=== PATIENT | male | born 1985 | race Caucasian/White ===

== ENCOUNTER 2016-12-18 03:50 | Emergency (ER) | payer OTHER ==
[~2016-12-18] VITALS: Ht 182.9 cm; Wt 72.6 kg
[2016-12-18 04:05] VITALS: BP 118/69
--- NOTE | 2016-12-18 04:12 | NUR ---
Patient to bed 05.
[2016-12-18] MEDS ORDERED: NACL 0.9% 1,000 ML IV SCH (04:14)
[2016-12-18] MEDS ORDERED: ONDANSETRON 4 MG/2 ML VIAL IVP ONE (04:15)
--- NOTE | 2016-12-18 04:16 | NUR ---
Dr. Morris evaluating patient at bedside.
[2016-12-18] MEDS ORDERED: HYDROmorphone 1 MG/ML AMP IVP ONE (04:20)
--- NOTE | 2016-12-18 04:51 | NUR ---
PATIENT PRESENTS TO ED WITH LT FLANK PAIN X3DAYS . PT STATES WHEN HE URINATES ON HIS OWN, HIS URINE IS NORMAL, HOWEVER WHEN HE DRAINS HIS UROSTOMY BAG, PATIENT NOTICES HIS URINE IS CLOUDY WITH A FOUL ODOR . DENIES N/V/D; SKIN IS PINK/WARM/DRY; AAOX4 WITH EVEN AND STEADY GAIT; LUNGS CLEAR BL; HR EVEN AND REGULAR; PT DENIES ANY FEVER, CP, SOB, OR COUGH AT THIS TIME; PATIENT STATES PAIN OF 8/10 AT THIS TIME; VSS; PATIENT POSITIONED FOR COMFORT; HOB ELEVATED; BEDRAILS UP X2; BED DOWN. ER MD MADE AWARE OF PT STATUS.
[2016-12-18 05:41] VITALS: BP 118/69
--- NOTE | 2016-12-18 05:41 | NUR ---
Patient discharged with v/s stable. Written and verbal after care instructions given and explained. Patient alert, oriented and verbalized understanding of instructions. Ambulatory with steady gait. All questions addressed prior to discharge. ID band removed. Patient advised to follow up with PMD. Rx of ZOFRAN AND NORCO given. Patient educated on indication of medication including possible reaction and side effects. Opportunity to ask questions provided and answered.
--- NOTE | 2016-12-22 14:23 | NUR ---
ADDENDUM:URINE CULTURE RESULTS ACINETOBACTER BAUMANNII/HAEMOL,STENOTROPHOMONAS MALTOPHILIA.LIDIA REVIEWED BY .CALLED PATIENT AND LEFT MESSAGE TO CALL ER.
== END 2016-12-18 05:41 | disposition home or self-care (01) ==
LOC: MED 03:50
DX: R10.9 Unspecified abdominal pain (principal); R11.0 Nausea; M54.9 Dorsalgia, unspecified; Z87.448 Personal history of other diseases of urinary system; Z82.49 Family history of ischemic heart disease and other diseases of the circulatory system; Z83.3 Family history of diabetes mellitus
CPT/HCPCS: 36415; 74176; 80053; 81001; 82150; 83690; 85025; 87086; 96361; 96374; 96375; 99285; J1170; J2405; J7030

== ENCOUNTER 2017-01-02 17:45 | Inpatient (IN) | payer OTHER ==
[~2017-01-02] VITALS: Ht 182.9 cm; Wt 70.8 kg
[2017-01-02 18:00] VITALS: BP 117/75
--- NOTE | 2017-01-02 18:24 | NUR ---
PT. PRESENTS TO THE ED WITH C/O LEFT SIDED FLANK PAIN, HE STATES HE HAS HAD A NEPHROSTOMY TUBE TO LEFT KIDNEY SINCE BUT THAT THE TUBE WAS REPLACED 2-3 WEEKS AGO AT [facility], PT. STATES THE URINE OUTPUT FROM THE NEPHROSTOMY HAS DECREASED AND THE URINE ODOR HAS GOTTEN WORSE, NO VISIBLE SIGNS OF DISTRESS NOTED, BREATHING EVEN AND UNLABORED, AAOX4 AMBULATORY, GAIT STEADY
[2017-01-02] MEDS ORDERED: HYDROmorphone 1 MG/ML AMP IVP ONE ×2 (18:35→20:35)
[2017-01-02 18:50] LABS: BASOPHILS # (AUTO) 0.2 K/uL (0.00-0.22); BASOPHILS % (AUTO) 1.5 % (0.0-2.0); EOSINOPHILS # (AUTO) 0.3 K/uL (0-0.4); EOSINOPHILS % (AUTO) 2.4 % (0.0-4.0); HEMATOCRIT 44.3 % (36-52); HEMOGLOBIN 14.8 g/dL (12.0-18.0); LYMPHOCYTES # (AUTO) 1.3 K/uL (2.0-11.5); LYMPHOCYTES % (AUTO) 11.1 % (20.5-51.1); MEAN CORPUSCULAR HEMOGLOBIN 28 pg (27-31); MEAN CORPUSCULAR HGB CONC 33 g/dL (33-37); MEAN CORPUSCULAR VOLUME 84 fL (80-94); MONOCYTES # (AUTO) 0.5 K/uL (0.8-1.0); MONOCYTES % (AUTO) 4.1 % (1.7-9.3); NEUTROPHILS % (AUTO) 80.9 % (42.2-75.2); PLATELET COUNT (AUTO) 187 K/uL (140-450); RED BLOOD CELL COUNT(AUTO) 5.25 MIL/uL (4.20-6.10); RED CELL DISTRIBUTION WIDTH 13.1 % (11.6-13.7); WHITE BLOOD COUNT (AUTO) 11.3 K/uL (4.8-10.8)
[2017-01-02 18:54] LABS: APPEARANCE,URINE SL CLOUDY (CLEAR); BILIRUBIN,URINE NEGATIVE (NEGATIVE); BLOOD, URINE 3+ (NEGATIVE); COLOR,URINE YELLOW (YELLOW); LEUKOCYTE ESTERASE ,URINE 2+ (NEGATIVE); NITRITE, URINE POSITIVE (NEGATIVE); PROTEIN,URINE 3+ (NEGATIVE); UGLUCOSE NEGATIVE (NEGATIVE); UROBILINOGEN,URINE 0.2 EU/dL (0.2 - 1)
[2017-01-02 18:58] LABS: BACTERIA,URINE 4+ /HPF (None Seen); RBC,URINE 30-50 /HPF (0-5); SQUAMOUS EPITHELIAL CELL,UR 0-3 (FEW) /LPF (0-3 (FEW)); WBC,URINE 60-80 /HPF (0-5)
[2017-01-02 19:05] LABS: ANION GAP 11.4 (8-16); CALCIUM 8.6 mg/dL (8.5-10.1); CARBON DIOXIDE 28.2 mmol/L (21-32); CREATININE 0.8 mg/dL (0.6-1.3); POTASSIUM 3.6 mmol/L (3.5-5.1)
--- NOTE | 2017-01-02 19:10 | NUR ---
PATIENT REPORT GIVEN TO FLORENCE DASH.
[2017-01-02 19:12] LABS: ALBUMIN 4.5 g/dL (3.4-5.0); TOTAL BILIRUBIN 1.2 mg/dL (0.0-1.0); TOTAL PROTEIN, SERUM 7.5 g/dL (6.4-8.2)
[2017-01-02 19:13] LABS: LACTIC ACID 0.6 mmol/L (0.4-2.0)
--- NOTE | 2017-01-02 19:18 | NUR ---
PATIENT REPORT RECEIVED FROM LILY ARCHIBALD FROM DAY SHIFT. 31 Y/O MALE CAME IN WITH LEFT FLANK PAIN 2-3 WEEKS AGO. WITH LEFT NEPHROSTOMY TUBE REPLACED FROM [facility] 2-3 WEEKS AGO[address] CAME IN [place]. NOW DENIES ANY PAIN. VERBALIZED THAT PREVIOUS MED RELIEVED THE PAIN. INITIAL ASSESSMENT DONE, VS STABLE. NO NAUSEA OR VOMITING NOTED.
[2017-01-02] MEDS ORDERED: ONDANSETRON 4 MG/2 ML VIAL IVP PRN (20:30)
[2017-01-02] MEDS ORDERED: ACETAMINOPHEN 325 MG TAB PO PRN (20:30)
[2017-01-02 20:48] LABS: INR 1.1 (0.8-1.2); PROTHROMBIN TIME 10.1 secs (10.8-13.4)
--- NOTE | 2017-01-02 21:35 | NUR ---
Patient will be admitted to care of DR. PEREZ. Admited to MED SURG. Will go to room 105 A. Belongings list completed. Report to HARDY ARCHIBALD.
[2017-01-02 22:00] VITALS: BP 127/83
--- NOTE | 2017-01-02 22:00 | NUR ---
ADMITTED THIS 31 YEAR OLD MALE FROM ER WITH CC OF LEFT FLANK PAIN, AMBULATED TO BED WITH STEADY GAIT, ASSESSMENT DONE, VITAL SIGNS STABLE, WITH LEFT NEPHROSTOMY TUBE IN PLACE ATTACH TO DRAINAGE BAG WITH CLOUDY YELLOW URINE OUTPUT, REDNESS NOTED TO NEPHROSTOMY SITE, NO BLEEDING OR DRAINAGE NOTED, 4/10 PAIN LEVEL AT THIS TIME, ORIENTED TO ROOM AND CALL LIGHT, CALL LIGHT WITHIN REACH.
[2017-01-02] MEDS ORDERED: PIPERACILLIN/TAZOBACTAM 3.375 GM VIAL IV ONE (22:03)
[2017-01-02] MEDS: NACL 0.9% 1,000 ML IV SCH (22:16)
[2017-01-02] MEDS: PIPERACILLIN/TAZOBACTAM 3.375 GM in DEXTROSE 5% 50 ML IV SCH (22:16)
--- NOTE | 2017-01-02 22:20 | NUR ---
REGULAR DIET PROVIDED, WITH GOOD APPETITE, IVF STARTED AND ZOSYN IVPB ADMINISTERED, MONITORED CLOSELY FOR REACTION, ALL NEEDS ATTENDED.
[2017-01-02] MEDS: HYDROmorphone 1 MG/ML AMP IVP PRN (23:50)
[2017-01-03] VITALS: BP 128/80
--- NOTE | 2017-01-03 | NUR ---
VITAL SIGNS STABLE, AFEBRILE, MEDICATED PRN FOR PAIN, CONTINUE TO MONITOR CLOSELY.
--- NOTE | 2017-01-03 00:30 | NUR ---
PT SEEN AMBULATING TO BR WITH STEADY GAIT, VOIDED FREELY.
--- NOTE | 2017-01-03 03:00 | NUR ---
ROUNDED ON PT, SLEEPING, NO SIGNS OF DISTRESS, MONITORED CLOSELY.
[2017-01-03] MEDS ORDERED: PIPERACILLIN/TAZOBACTAM 3.375 GM VIAL IV ONE (04:38)
[2017-01-03] MEDS: PIPERACILLIN/TAZOBACTAM 3.375 GM in DEXTROSE 5% 50 ML IV SCH (04:57)
--- NOTE | 2017-01-03 05:51 | NUR ---
PT SLEEPING, EASILY AROUSABLE, 110 ML YELLOW COLORED URINE OUTPUT FROM NEPHROSTOMY TUBE, DENIES PAIN AT THIS TIME.
[2017-01-03 06:15] LABS: BASOPHILS # (AUTO) 0.3 K/uL (0.00-0.22); BASOPHILS % (AUTO) 4.4 % (0.0-2.0); EOSINOPHILS # (AUTO) 0.4 K/uL (0-0.4); EOSINOPHILS % (AUTO) 6.1 % (0.0-4.0); HEMATOCRIT 42.7 % (36-52); HEMOGLOBIN 14.3 g/dL (12.0-18.0); LYMPHOCYTES # (AUTO) 2.4 K/uL (2.0-11.5); LYMPHOCYTES % (AUTO) 35.7 % (20.5-51.1); MEAN CORPUSCULAR HEMOGLOBIN 28 pg (27-31); MEAN CORPUSCULAR HGB CONC 33 g/dL (33-37); MEAN CORPUSCULAR VOLUME 85 fL (80-94); MONOCYTES # (AUTO) 0.4 K/uL (0.8-1.0); MONOCYTES % (AUTO) 6.3 % (1.7-9.3); NEUTROPHILS # (AUTO) 3.3 K/uL (1.8-7.7); NEUTROPHILS % (AUTO) 47.5 % (42.2-75.2); PLATELET COUNT (AUTO) 179 K/uL (140-450); RED BLOOD CELL COUNT(AUTO) 5.01 MIL/uL (4.20-6.10); RED CELL DISTRIBUTION WIDTH 13.3 % (11.6-13.7); WHITE BLOOD COUNT (AUTO) 6.8 K/uL (4.8-10.8)
[2017-01-03] MEDS: NACL 0.9% 1,000 ML IV SCH ×3 (06:29→21:38)
--- NOTE | 2017-01-03 06:40 | NUR ---
PT REFUSED SCD, RISK AND BENEFITS EXPLAINED, PT AMBULATORY, IVF INFUSING WELL.
[2017-01-03 06:50] LABS: ALBUMIN 3.9 g/dL (3.4-5.0); ANION GAP 9.8 (8-16); CALCIUM 7.8 mg/dL (8.5-10.1); CREATININE 0.9 mg/dL (0.6-1.3); POTASSIUM 3.8 mmol/L (3.5-5.1); TOTAL BILIRUBIN 1.4 mg/dL (0.0-1.0); TOTAL PROTEIN, SERUM 6.6 g/dL (6.4-8.2)
--- NOTE | 2017-01-03 07:25 | NUR ---
PT AWAKE, BEING SEEN BY DR ESPINOSA AT BEDSIDE, REPORT GIVEN TO CRISTELA REINOSO FOR CONTINUITY OF CARE.
--- NOTE | 2017-01-03 07:26 | NUR ---
RECEIVED PT IN BED, ALERT, AWAKE, ORIENTEDX4. BREATHING EVEN AND UNLABORED. DENIES ANY PAIN OR DISCOMFORT AT THIS TIME. POSITIVE BOWEL SOUNDS NOTED ON ALL FOUR QUADRANTS. LEFT NEPHROSTOMY TUBE IN PLACE, INTACT. NO DISCHARGE NOTED. HOOKED TO URINARY BAG. DRAINING YELLOW URINE. SEEN BY CELL LINER.
--- NOTE | 2017-01-03 07:27 | NUR ---
ADDITIONAL: SAFETY MEASURES IN PLACE. CALL LIGHT WITHIN REACH.
--- NOTE | 2017-01-03 07:30 | NUR ---
PT SEEN BY DR. ESPINOSA AT THE BEDSIDE. WITH ORDERS TO CHANGE THE NEPHROSTOMY LEG BAG.
--- NOTE | 2017-01-03 07:50 | NUR ---
PATIENT HAS BEEN SCREENED AND CATEGORIZED MODERATE NUTRITION RISK. PATIENT WILL BE SEEN WITHIN 3-5 DAYS OF ADMISSION. 01/05/17-01/07/[address]
[2017-01-03 08:00] VITALS: BP 102/64
[2017-01-03] MEDS: MORPHINE SULFATE 2 MG/ML SYR IVP PRN ×2 (08:09→18:31)
[2017-01-03] MEDS: ENOXAPARIN 40 MG/0.4 ML SYR SUBQ SCH (08:10)
--- NOTE | 2017-01-03 08:30 | NUR ---
LEFT NEPHROSTOMY LEG BAG CHANGED. MODERATE AMOUNTS OF CLOUDY, YELLOW DRAINAGE NOTED.
--- NOTE | 2017-01-03 08:30 | NUR ---
LEFT NEPHROSTOMY LEG BAG CHANGED. Addendum: 01/03/17 at 1552 by Leida Diop RN DUPLICATE ENTRY.
[2017-01-03] MEDS: PIPER/TAZO 3.375GM/D5W PREMIX 50 ML IV SCH ×2 (12:55→20:22)
--- NOTE | 2017-01-03 13:00 | NUR ---
DR. PEREZ HERE TO SEE PT.
[2017-01-03] MEDS: HYDROmorphone 1 MG/ML AMP IVP PRN ×2 (13:01→20:58)
--- NOTE | 2017-01-03 14:40 | NUR ---
CM NOTE INITIAL REVIEW SENT TO [facility] FAX# [phone] PH# JORGE LUIS [phone]
--- NOTE | 2017-01-03 15:00 | NUR ---
LEFT NEPHROSTOMY TUBE DRESSING CHANGED. SITE DRY, SUTURES INTACT, NO SIGNS OF INFECTION NOTED. MODERATE AMOUNTS OF LEFT NEPHROSTOMY TUBE DRAINAGE NOTED, CLEAR ADIEL IN COLOR.
[2017-01-03 16:00] VITALS: BP 124/77
--- NOTE | 2017-01-03 16:00 | NUR ---
NEPHROSTOMY TUBE DRESSING CHANGED. NO DISCHARGE NOTED. TUBE INTACT. PT DENIES ANY PAIN OR DISCOMFORT AT THIS TIME. SEEN PT WALK AND AMBULATE ALONG THE HALLWAY INDEPENDENTLY, TOLERATED ACTIVITY WELL.
--- NOTE | 2017-01-03 19:20 | NUR ---
ENDORSED TO NEXT SHIFT NURSE. PT ON STABLE CONDITION. KEPT CLEAN DRY AND COMFORTABLE NEEDS ATTENDED.
--- NOTE | 2017-01-03 19:22 | NUR ---
PATIENT IS AWAKE ALERT ORIENTED RESTING IN BED,IVF INFUSING WELL IV SITE PATENT NO INFILTRATION NOTED, PATIENT DENIES PAIN AT THIS TIME. PATIENT DRESSING TO LT SIDE WERE THE NEPHROSTOMY TUBE IS CURRENTLY DRY AND INTACT AND HAS A URINE BAG WITH YELLOW CLEAR URINE NOTED. PATIENT IS ABLE TO MAKE NEEDS KNOWN.CALL LIGHT WITHIN REACH WILL CONTINUE TO MONITOR.
[2017-01-03 20:00] VITALS: BP 116/78
--- NOTE | 2017-01-03 20:00 | NUR ---
Patient's Plan of Care was discussed and reviewed with UNIVERSITY MANAGER: STORM CHAVEZ.
--- NOTE | 2017-01-03 21:38 | NUR ---
PATIENT IS CURRENTLY RESTING IN BED SMILING PLAYING AND PATIENT STATES,"IM WATCHING MOVIES." PATIENT IS CALM AND COOPERATIVE AND CALL LIGHT WITHIN REACH.PATIENT REFUSES TO WEAR SCD'S EDUCATION GIVEN ON SCD'S AND PATIENT VERBALIZES UNDERSTANDING. WILL CONTINUE TO OBSERVE.
[2017-01-04] VITALS: BP 128/79
--- NOTE | 2017-01-04 | NUR ---
PATIENT SMILING WATCHING MOVIES IN HIS TABLET AT THIS TIME.WILL CONTINUE TO MONITOR CALL LIGHT WITHIN REACH.
[2017-01-04] MEDS: MORPHINE SULFATE 2 MG/ML SYR IVP PRN ×3 (00:14→13:20)
--- NOTE | 2017-01-04 03:20 | NUR ---
PATIENT IS CURRENTLY ASLEEP IN BED.WILL CONTINUE TO MONITOR.
[2017-01-04] MEDS: PIPER/TAZO 3.375GM/D5W PREMIX 50 ML IV SCH ×2 (04:26→12:28)
--- NOTE | 2017-01-04 06:05 | NUR ---
PATIENT STABLE SLEEPING COMFORTABLY IN BED,IVF INFUSING WELL,NO PAIN OR DISCOMFORT AT THIS TIME WILL CONTINUE TO MONITOR CALL LIGHT WITHIN REACH.
--- NOTE | 2017-01-04 07:21 | NUR ---
PATIENT STABLE REPORT ENDORSED TO CRISTELA SCHNEIDER AT BEDSIDE.
--- NOTE | 2017-01-04 07:21 | NUR ---
RECEIVED REPORT FROM NIGHT NURSE. PT IS AAOX4, ON ROOM AIR, IV TO RIGHT HAND 22G INFUSING WELL. LEFT LOWER BACK NEPHROTOMY TUBE WITH DRESSING DRY AND INTACT AN DRAINAGE BAG, DRAINING CLEAR YELLOW URINE. INITIAL ASSESSMENT COMPLETED. REVIEWED PLAN OF CARE WITH PT, PT VERBALIZED UNDERSTANDING. ALL SAFETY PRECAUTIONS MET, ALL NEEDS MET. CALL LIGHT WITHIN REACH. WILL CONTINUE TO MONITOR.
[2017-01-04 08:00] VITALS: BP 113/73
[2017-01-04] MEDS: ENOXAPARIN 40 MG/0.4 ML SYR SUBQ SCH (09:11)
--- NOTE | 2017-01-04 09:11 | NUR ---
DUE MEDICATIONS GIVEN. PT TOLERATED WELL. ALL NEEDS MET. CALL LIGHT WITHIN REACH. WILL CONTINUE TO MONITOR.
[2017-01-04] MEDS: NACL 0.9% 1,000 ML IV SCH (09:13)
--- NOTE | 2017-01-04 11:45 | NUR ---
PT CURRENTLY WALKING AROUND UNIT. NO S/S OF DISTRESS NOTED. WILL CONTINUE TO MONITOR.
--- NOTE | 2017-01-04 12:30 | NUR ---
DUE MEDICATION GIVEN. DISCUSSED DISCHARGE PLAN WITH PT, PT VERBALIZED UNDERSTAND. CALL LIGHT WITHIN REACH.
--- NOTE | 2017-01-04 13:55 | NUR ---
PT WALKING AROUND UNIT. WILL CONTINUE TO MONITOR.
--- NOTE | 2017-01-04 14:45 | NUR ---
PT SIGNED ALL DISCHARGE PAPERWORK, EDUCATIONS AND PRESCRIPTION GIVEN. PT VERBALIZED UNDERSTANDING. IV REMOVED TIP INTACT. ID BANDS REMOVED. ALL PERSONAL BELONGINGS WITH PT. AWAITING FOR FRIEND TO PICK HIM UP
--- NOTE | 2017-01-04 15:03 | NUR ---
PT WAS WALKED OUT TO FRONT LOBBY IN STABLE CONDITION.
== END 2017-01-04 15:03 | disposition home or self-care (01) | DRG 466 ==
LOC: MED 17:45 → MTU 20:34
PROVIDERS: ADMIT Internal Medicine Pulmonary Disease; ATTEND Internal Medicine Pulmonary Disease
PROC: 0T25X0Z Change Drainage Device in Kidney, External Approach (ICD-10-PCS; principal; 2017-01-03)
DX: N99.528 Other complication of incontinent external stoma of urinary tract (principal); R56.9 Unspecified convulsions; N12 Tubulo-interstitial nephritis, not specified as acute or chronic; D72.829 Elevated white blood cell count, unspecified; N13.30 Unspecified hydronephrosis
CPT/HCPCS: 36415; 80053; 81001; 83605; 85025; 85610; 87040; 87081; 87086; 87186; 96374; 96376; 99285; J1170; J1650; J2270; J2543; J7030; J7060

== ENCOUNTER 2017-01-31 02:15 | Inpatient (IN) | payer OTHER ==
[~2017-01-31] VITALS: Ht 182.9 cm; Wt 74.8 kg
[2017-01-31 02:22] VITALS: BP 104/72
--- NOTE | 2017-01-31 02:30 | NUR ---
PT TAKEN TO BED 4
[2017-01-31] MEDS ORDERED: fentaNYL 0.05 MG/ML VIAL IVP ONE (02:50)
[2017-01-31] MEDS ORDERED: NACL 0.9% 1,000 ML IV ONE (02:50)
[2017-01-31] MEDS ORDERED: ONDANSETRON 4 MG/2 ML VIAL IVP ONE (02:50)
--- NOTE | 2017-01-31 02:51 | NUR ---
31Y/M PATIENT PRESENTS TO ED WITH C/O TESTICULAR PAIN X 1 DAY . PT STATES PAIN START TODAY, HX. URETER OBSTRUCTION, HYDRONEPHROSIS LT. LIDNEY, ON LT.NEPHROSTOMY . DENIES N/V/D; SKIN IS PINK/WARM/DRY; AAOX4 WITH EVEN AND STEADY GAIT; LUNGS CLEAR BL; HR EVEN AND REGULAR; PT DENIES ANY FEVER, CP, SOB, OR COUGH AT THIS TIME; PATIENT STATES PAIN OF 10/10 AT THIS TIME; LT. NEPHROSTOMY PATENT AND INTACT, CLOUDY URINE DRAINE WELL. VSS; PATIENT POSITIONED FOR COMFORT; HOB ELEVATED; BEDRAILS UP X2; BED DOWN. ER MD MADE AWARE OF PT STATUS.
[2017-01-31 03:06] LABS: BASOPHILS # (AUTO) 0.3 K/uL (0.00-0.22); BASOPHILS % (AUTO) 3.9 % (0.0-2.0); EOSINOPHILS # (AUTO) 0.4 K/uL (0-0.4); EOSINOPHILS % (AUTO) 6.7 % (0.0-4.0); HEMATOCRIT 45.2 % (36-52); HEMOGLOBIN 15.2 g/dL (12.0-18.0); LYMPHOCYTES # (AUTO) 2.4 K/uL (2.0-11.5); LYMPHOCYTES % (AUTO) 35.7 % (20.5-51.1); MEAN CORPUSCULAR HEMOGLOBIN 29 pg (27-31); MEAN CORPUSCULAR HGB CONC 34 g/dL (33-37); MEAN CORPUSCULAR VOLUME 85 fL (80-94); MONOCYTES # (AUTO) 0.4 K/uL (0.8-1.0); MONOCYTES % (AUTO) 6.7 % (1.7-9.3); NEUTROPHILS # (AUTO) 3.1 K/uL (1.8-7.7); PLATELET COUNT (AUTO) 198 K/uL (140-450); RED BLOOD CELL COUNT(AUTO) 5.34 MIL/uL (4.20-6.10); RED CELL DISTRIBUTION WIDTH 12.6 % (11.6-13.7); WHITE BLOOD COUNT (AUTO) 6.6 K/uL (4.8-10.8)
[2017-01-31 03:22] LABS: ALBUMIN 4.3 g/dL (3.4-5.0); ANION GAP 12.9 (8-16); CREATININE 0.8 mg/dL (0.6-1.3); POTASSIUM 3.9 mmol/L (3.5-5.1); TOTAL BILIRUBIN 0.8 mg/dL (0.0-1.0); TOTAL PROTEIN, SERUM 7.4 g/dL (6.4-8.2)
--- NOTE | 2017-01-31 03:23 | NUR ---
Dr. Mcbride evaluating patient at bedside.
[2017-01-31 03:25] LABS: PARTIAL THROMBOPLASTIN TIME 28.7 secs (22-35.6); PROTHROMBIN TIME 9.9 secs (10.8-13.4)
--- NOTE | 2017-01-31 03:28 | NUR ---
TAKE PT. TO CT
[2017-01-31 03:36] LABS: APPEARANCE,URINE CLOUDY (CLEAR); BILIRUBIN,URINE NEGATIVE (NEGATIVE); BLOOD, URINE 2+ (NEGATIVE); COLOR,URINE YELLOW (YELLOW); LEUKOCYTE ESTERASE ,URINE 3+ (NEGATIVE); NITRITE, URINE POSITIVE (NEGATIVE); PROTEIN,URINE 2+ (NEGATIVE); UGLUCOSE NEGATIVE (NEGATIVE); UROBILINOGEN,URINE 0.2 EU/dL (0.2 - 1)
--- NOTE | 2017-01-31 03:46 | NUR ---
PT. BACK FROM CT
[2017-01-31 04:11] LABS: BACTERIA,URINE 4+ /HPF (None Seen); RBC,URINE TOO NUMEROUS TO COUN /HPF (0-5); SQUAMOUS EPITHELIAL CELL,UR None Seen /LPF (0-3 (FEW)); WBC,URINE TOO MANY TO COUNT /HPF (0-5)
[2017-01-31] MEDS ORDERED: LEVOFLOXACIN 500 MG/D5W PREMIX 100 ML IV ONE (04:35)
[2017-01-31] MEDS ORDERED: cefTRIAXone 2,000 MG in DEXTROSE 5% 100 ML IV ONE (04:35)
[2017-01-31] MEDS ORDERED: cefTRIAXone 2,000 MG VIAL ONE (04:42)
[2017-01-31] MEDS ORDERED: HYDROcodone/APAP 5/325 MG 1 TAB TAB PO PRN (04:45)
[2017-01-31] MEDS ORDERED: ACETAMINOPHEN 325 MG TAB PO PRN (04:45)
[2017-01-31] MEDS ORDERED: LORazepam 2 MG/ML VIAL IVP PRN (04:45)
[2017-01-31] MEDS ORDERED: ONDANSETRON 4 MG/2 ML VIAL IVP PRN (04:45)
--- NOTE | 2017-01-31 05:15 | NUR ---
Patient will be admitted to [facility]. Admited to MED-SURG. Will go to room 113. Belongings list completed. Report to CRISTELA HOSKINS.
--- NOTE | 2017-01-31 05:25 | NUR ---
PT ARRIVED ON UNIT IN STABLE CONDITION. NO SOB, NO SIGNS OF DISTRESS. PT IS AOX4, AMBULATORY. VS STABLE ON ROOM AIR. PT C/O PAIN AT NEPHROSTOMY SITE, WILL MEDICATE PER MD ORDER. PT WITH LT NEPHROSTOMY TUBE SURGICAL INCISION WITH MINIMAL PURULENT DRAINAGE NOTED, PICTURES TAKEN AND PLACED IN CHART. IV TO LT AC 18G PATENT, ASYMPTOMATIC, INTACT, IVF RUNNING. ORIENTED PT TO ROOM AND UNIT. PLAN OF CARE DISCUSSED WITH PT. SAFETY MEASURES IN PLACE. CALL LIGHT WITHIN REACH WILL CONTINUE TO MONITOR.
[2017-01-31 05:34] VITALS: BP 119/71
[2017-01-31] MEDS: NACL 0.9% 1,000 ML IV SCH ×2 (05:51→18:45)
[2017-01-31] MEDS: MORPHINE SULFATE 2 MG/ML SYR IVP PRN ×4 (05:54→23:48)
--- NOTE | 2017-01-31 07:20 | NUR ---
ENDORSED PT IN STABLE CONDITION TO CRISTELA WATTS. ALL NEEDS HAVE BEEN MET AT THIS TIME.
--- NOTE | 2017-01-31 07:21 | NUR ---
RECEIVED REPORT FROM CONTINUING EDUCATION DEAN NURSE AT BEDSIDE. PT IS AWAKE ALERT AND ORIENTED. INTRODUCED OURSELVES AND UPDATED THE BOARD. PT IS AMBULATORY, DENIES PAIN AT THIS TIME. NOTED IV AT L AC 20G. EMPTIED 400ML OF NEPHROSTOMY TUBE OF URINE. WILL CONTINUE TO MONITOR PT.
[2017-01-31 08:00] VITALS: BP 124/69
[2017-01-31] MEDS: ENOXAPARIN 40 MG/0.4 ML SYR SUBQ SCH (09:23)
--- NOTE | 2017-01-31 09:23 | NUR ---
ADMINISTERED LOVENOX. PT TOLERATED WELL. PT IS RESTING IN BED. WILL CONTINUE TO MONITOR.
--- NOTE | 2017-01-31 09:55 | NUR ---
CM NOTE INITIAL REVIEW SENT TO [facility] FAX# [phone] PH# JORGE LUIS [phone] MARCH [phone]
--- NOTE | 2017-01-31 10:05 | NUR ---
WOUND CARE EVALUATION NOTES: REASON FOR EVALUATION: LEFT NEPHROSTOMY SITE-POSSIBLE INFECTION COMPLETE SKIN ASSESSMENT DONE ON THIS 31 Y/O MALE PATIENT FROM HOME TO [facility], WITH INITIAL DIAGNOSIS OF PYELONEPHRITIS. PAST MEDICAL HISTORY INCLUDE URETER OBSTRUCTION. ALL ABOVE INFORMATION WAS OBTAINED FROM THE ADMISSION H&P. LABS ARE WBC 6.5, H/H 15.2/45.2, GLUCOSE 90, ALBUMIN 4.3, PT/INR 9.9/1.0 AND PTT 28.7. CURRENT MEDS INCLUDE CEFTRIAXONE, ENOXAPARIN, MORPHINE AND NORCO. PATIENT IS AWAKE, ORIENTED TO PERSON, PLACE, DATE AND TIME. SKIN WARM TO TOUCH WNL, TOENAILS WNL, NO EDEMA, WITH HAIR GROWTH AND +2 BILATERAL PEDAL PULSES. URINE AND BOWEL CONTINENT, ABLE TO AMBULATE TO THE RESTROOM CLAIMED. ABLE TO TURN SELF WITHOUT ASSISTANCE. ABLE TO MAKE HIS NEEDS KNOWN. INITIAL PLAN OF CARE AND PRESSURE PREVENTIVE MEASURES DISCUSSED, ABLE TO VERBALIZE UNDERSTANDING. INTEGUMENTARY: LEFT FLANK - NEPHROSTOMY SITE RECOMMENDATIONS: -LEFT FLANK (NEPHROSTOMY SITE): CLEANSE WITH NS AND GAUZE, PAT DRY, COVER WITH DRAIN SPONGE BIDWC AND PRN WITH SOILING --TURN AND REPOSITION PATIENT Q2H -ASSESS AND MONITOR SKIN CONDITION DURING POSITION CHANGE, PLEASE PAY PARTICULAR ATTENTION TO SACRALCOCCYX, ELBOWS AND HEELS -OFFLOAD BILATERAL HEELS BY PLACING PILLOWS UNDER CALVES AT ALL TIMES, UNLESS OTHERWISE CONTRAINDICATED -KEEP SKIN CLEAN AND DRY AT ALL TIMES. RECOMMENDATIONS DISCUSSED WITH PRIMARY RN AND PMD. NO FOLLOW UP NEEDED AT THIS TIME. PLEASE CONTACT [facility] FOR ANY CONCERNS, QUESTIONS AND CHANGES IN SKIN CONDITION.
--- NOTE | 2017-01-31 11:13 | NUR ---
PT ASKED FOR PAIN MEDICATION FOR HIS PAIN. ADMINISTERED MORPHINE. PT TOLERATED WELL. WILL REASSESS AND CONTINUE TO MONITOR.
[2017-01-31] MEDS ORDERED: GAUZE TP PRN (13:35)
--- NOTE | 2017-01-31 14:30 | NUR ---
PT IS RESTING IN BED. NO SIGNS OF DISCOMFORT OR DISTRESS. CALL HINDS WITHIN REACH. WILL CONTINUE TO MONITOR.
[2017-01-31 16:00] VITALS: BP 109/61
--- NOTE | 2017-01-31 16:00 | NUR ---
VS WNL. PT RESTING IN BED. CALL LIGHT WITHIN REACH. WILL CONTINUE TO MONITOR.
--- NOTE | 2017-01-31 17:50 | NUR ---
PT AMBULATED TO THE BATHROOM. NO COMPLAINTS AT THIS TIME, DENIES PAIN. CALL LIGHT WITHIN REACH. WILL CONTINUE TO MONITOR.
--- NOTE | 2017-01-31 18:49 | NUR ---
PT IS AWAKE AND ALERT. NEW IV NS BAG HUNG. PT HAS PAIN. ADMINISTERED PAIN MEDS. PT TOLERATED WELL. WILL CONTINUE TO MONITOR PT.
--- NOTE | 2017-01-31 19:25 | NUR ---
ENDORSED CARE OF PT TO MATERIAL MOVERS NURSE AT BEDSIDE FOR CONTINUITY OF CARE. PT IN STABLE CONDITION.
--- NOTE | 2017-01-31 19:25 | NUR ---
RECEIVED REPORT FROM DAY SHIFT NURSE. PT IS AAOX4, DENIES PAIN. ON ROOM AIR, NO S/S OF RESPIRATORY DISTRESS/DISCOMFORT NOTED. IV SITE ID PATENT AND INTACT. LEFT NEPHROSTOMY SITE NOTED. PLAN OF CARE DISCUSSED, VERBALIZED UNDERSTANDING. SAFETY MEASURES CHECKED, CALL LIGHT WITHIN REACH. WILL CONTINUE TO MONITOR.
--- NOTE | 2017-01-31 21:00 | NUR ---
PT IS AWAKE AND WATCHING TV. DENIES PAIN. CALL LIGHT WITHIN REACH.
[2017-01-31 23:47] VITALS: BP 121/69
--- NOTE | 2017-01-31 23:52 | NUR ---
PT COMPLAINED OF PAIN OF 7/10, MEDICATED PER MD ORDERED. V/S CHECKED AND STABLE, CALL LIGHT WITHIN REACH.
[2017-02-01] MEDS ORDERED: GAUZE TP SCH (01:00)
--- NOTE | 2017-02-01 02:16 | NUR ---
EYES CLOSED, RESTING QUIETLY, BREATHING EVEN AND UNLABORED. NO SOB NOTED. JUAN JOSE LIGHT WITHIN REACH.
--- NOTE | 2017-02-01 04:00 | NUR ---
PT SLEEPING. CHAI S/S OF RESPIRATORY DISTRESS/DISCOMFORT NOTED. CALL LIGHT WITHIN REACH.
[2017-02-01] MEDS: NACL 0.9% 1,000 ML IV SCH (04:32)
[2017-02-01 06:42] LABS: BASOPHILS # (AUTO) 0.1 K/uL (0.00-0.22); BASOPHILS % (AUTO) 2.2 % (0.0-2.0); EOSINOPHILS # (AUTO) 0.5 K/uL (0-0.4); EOSINOPHILS % (AUTO) 7.9 % (0.0-4.0); HEMATOCRIT 47.8 % (36-52); HEMOGLOBIN 15.5 g/dL (12.0-18.0); LYMPHOCYTES # (AUTO) 2.6 K/uL (2.0-11.5); LYMPHOCYTES % (AUTO) 43.7 % (20.5-51.1); MEAN CORPUSCULAR HEMOGLOBIN 28 pg (27-31); MEAN CORPUSCULAR HGB CONC 32 g/dL (33-37); MEAN CORPUSCULAR VOLUME 85 fL (80-94); MONOCYTES # (AUTO) 0.4 K/uL (0.8-1.0); MONOCYTES % (AUTO) 7.7 % (1.7-9.3); NEUTROPHILS # (AUTO) 2.2 K/uL (1.8-7.7); NEUTROPHILS % (AUTO) 38.5 % (42.2-75.2); PLATELET COUNT (AUTO) 197 K/uL (140-450); RED BLOOD CELL COUNT(AUTO) 5.62 MIL/uL (4.20-6.10); RED CELL DISTRIBUTION WIDTH 12.4 % (11.6-13.7); WHITE BLOOD COUNT (AUTO) 5.8 K/uL (4.8-10.8)
--- NOTE | 2017-02-01 07:15 | NUR ---
RECEIVED PATIENT REPORT AT BEDSIDE. PATIENT AWAKE, ALERT AND ORIENTED. NO S/S OF DISTRESS NOTED. NO C/O OF PAIN AT THIS TIME. LEFT NEPHROSTOMY TUBE IN PLACE, DRAINING YELLOW URINE. IV LINE TO THE LEFT AC INTACT WITH IVF INFUSING WELL. BED LOWERED WITH CALL LIGHT WITHIN REACH. WILL CONTINUE TO MONITOR
[2017-02-01 07:16] LABS: ANION GAP 12.5 (8-16); CALCIUM 9.1 mg/dL (8.5-10.1); CARBON DIOXIDE 29.9 mmol/L (21-32); MAGNESIUM 2.1 mg/dL (1.8-2.4); POTASSIUM 4.4 mmol/L (3.5-5.1); TOTAL BILIRUBIN 1.2 mg/dL (0.0-1.0)
--- NOTE | 2017-02-01 07:20 | NUR ---
ENDORSED REPORT TO DAY SHIFT NURSE FOR CONTINUITY OF CARE. PT IN STABLE CONDITION.
[2017-02-01 08:00] VITALS: BP 134/76
[2017-02-01] MEDS: ENOXAPARIN 40 MG/0.4 ML SYR SUBQ SCH (09:25)
[2017-02-01] MEDS: MORPHINE SULFATE 2 MG/ML SYR IVP PRN (09:28)
--- NOTE | 2017-02-01 11:20 | NUR ---
PATIENT WANTED TO LEAVE AMA. EXPLAINED TO THE PATIENT THE RISKS OF LEAVING AMA. PATIENT VERBALIZED UNDERSTANDING. DR MOLINA NOTIFIED. PATIENT LEFT WITH ALL HIS BELONGINGS. PATIENT LEFT IN STABLE CONDITION
== END 2017-02-01 11:20 | disposition left against medical advice (07) | DRG 463 ==
LOC: MED 02:15 → MTU 04:52
PROVIDERS: ADMIT Hospitalist; ATTEND Hospitalist
DX: N12 Tubulo-interstitial nephritis, not specified as acute or chronic (principal); N13.30 Unspecified hydronephrosis; F12.90 Cannabis use, unspecified, uncomplicated; G40.909 Epilepsy, unspecified, not intractable, without status epilepticus; Z53.21 Procedure and treatment not carried out due to patient leaving prior to being seen by health care provider; Z93.6 Other artificial openings of urinary tract status
CPT/HCPCS: 36415; 80053; 81001; 83735; 85025; 85610; 85730; 87081; 87086; 87186; 96361; 96365; 96375; 99285; J0696; J1650; J1956; J2270; J2405; J3010; J7030; J7060

== ENCOUNTER 2017-03-31 01:10 | Emergency (ER) | payer OTHER ==
[~2017-03-31] VITALS: Ht 182.9 cm; Wt 77.6 kg
[2017-03-31 01:23] VITALS: BP 113/84
--- NOTE | 2017-03-31 04:40 | NUR ---
Patient ambulated to bed 08.
--- NOTE | 2017-03-31 04:42 | NUR ---
Dr. Herrera evaluating patient at bedside.
--- NOTE | 2017-03-31 05:00 | NUR ---
32Y M PRESENT TO ER C/O OF LT FLANK PAIN. PAIN 9/10 IN SCALE. PT TOOK NORCO AT 5PM BUT NO HELP. PT HAS LEFT NEPHROSTOMY TUBE, DRAINING WITH CONCENTRATED AND CLOUDY URINE. PT W/ HX OF DRUG RESISTANT URINE INFECTION. PSEUDO FLUORESCENS AND PUTIDA INFECTION.
[2017-03-31] MEDS ORDERED: HYDROmorphone 1 MG/ML AMP IVP ONE (06:10)
[2017-03-31 06:22] LABS: APPEARANCE,URINE CLOUDY (CLEAR); BILIRUBIN,URINE NEGATIVE (NEGATIVE); BLOOD, URINE 3+ (NEGATIVE); COLOR,URINE YELLOW (YELLOW); LEUKOCYTE ESTERASE ,URINE 2+ (NEGATIVE); NITRITE, URINE NEGATIVE (NEGATIVE); PH,URINE 6.5 (5.0-9.0); PROTEIN,URINE 3+ (NEGATIVE); UGLUCOSE NEGATIVE (NEGATIVE); UROBILINOGEN,URINE 0.2 EU/dL (0.2 - 1)
[2017-03-31 06:22] LABS: BASOPHILS # (AUTO) 0.2 K/uL (0.00-0.22); BASOPHILS % (AUTO) 2.7 % (0.0-2.0); EOSINOPHILS # (AUTO) 0.4 K/uL (0-0.4); HEMATOCRIT 43.7 % (36-52); HEMOGLOBIN 14.6 g/dL (12.0-18.0); LYMPHOCYTES # (AUTO) 2.5 K/uL (2.0-11.5); MEAN CORPUSCULAR HEMOGLOBIN 29 pg (27-31); MEAN CORPUSCULAR HGB CONC 34 g/dL (33-37); MEAN CORPUSCULAR VOLUME 85 fL (80-94); MONOCYTES # (AUTO) 0.4 K/uL (0.8-1.0); MONOCYTES % (AUTO) 5.4 % (1.7-9.3); NEUTROPHILS # (AUTO) 3.6 K/uL (1.8-7.7); NEUTROPHILS % (AUTO) 50.9 % (42.2-75.2); PLATELET COUNT (AUTO) 183 K/uL (140-450); RED BLOOD CELL COUNT(AUTO) 5.12 MIL/uL (4.20-6.10); RED CELL DISTRIBUTION WIDTH 12.6 % (11.6-13.7); WHITE BLOOD COUNT (AUTO) 7.1 K/uL (4.8-10.8)
[2017-03-31 06:35] LABS: ALBUMIN 4.4 g/dL (3.4-5.0); ANION GAP 12.2 (8-16); CALCIUM 8.6 mg/dL (8.5-10.1); CARBON DIOXIDE 28.2 mmol/L (21-32); CREATININE 0.9 mg/dL (0.6-1.3); POTASSIUM 3.4 mmol/L (3.5-5.1); TOTAL BILIRUBIN 1.3 mg/dL (0.0-1.0); TOTAL PROTEIN, SERUM 7.7 g/dL (6.4-8.2)
[2017-03-31 06:38] LABS: BACTERIA,URINE 2+ /HPF (None Seen); RBC,URINE 11-20 (MOD) /HPF (0-5); SQUAMOUS EPITHELIAL CELL,UR 0-3 (FEW) /LPF (0-3 (FEW)); WBC,URINE 60-80 /HPF (0-5)
--- NOTE | 2017-03-31 06:54 | NUR ---
IV removed, catheter intact and site benign. Applied folded 4x4 gauze and tape to stop bleeding.
--- NOTE | 2017-03-31 06:54 | NUR ---
Note aprilone in EDM - 03/31/17 at 0656 by MARQUES Patient discharged with v/s stable. Written and verbal after care instructions given and explained. Patient alert, oriented and verbalized understanding of instructions. Ambulatory with steady gait. All questions addressed prior to discharge. ID band removed. Patient advised to follow up with PMD. Rx of ZOFRAN ODT 4MG AND AUGMENTIN 875MG given. Patient educated on indication of medication including possible reaction and side effects. Opportunity to ask questions provided and answered.
--- NOTE | 2017-03-31 07:06 | NUR ---
Pt report given to JOZEF ARCHIBALD . Transfer of care at this time.
[2017-03-31 07:26] VITALS: BP 126/70
--- NOTE | 2017-03-31 07:26 | NUR ---
Patient discharged with v/s stable. Written and verbal after care instructions given and explained. Patient alert, oriented and verbalized understanding of instructions. Ambulatory with steady gait. All questions addressed prior to discharge. ID band removed. Patient advised to follow up with PMD. Rx of ZOFRAN& AUGMENTIN given. Patient educated on indication of medication including possible reaction and side effects. Opportunity to ask questions provided and answered.
== END 2017-03-31 07:26 | disposition home or self-care (01) ==
LOC: MED 01:10
DX: N39.0 Urinary tract infection, site not specified (principal)
CPT/HCPCS: 36415; 80053; 81001; 85025; 87086; 87186; 99284; J1170

== ENCOUNTER 2017-05-04 14:31 | Emergency (ER) | payer OTHER ==
[~2017-05-04] VITALS: Ht 177.8 cm; Wt 75.1 kg
[2017-05-04 14:40] VITALS: BP 114/69
--- NOTE | 2017-05-04 15:11 | NUR ---
Patient ambulated to bed 6. RN evaluating patient at bedside.
--- NOTE | 2017-05-04 15:45 | NUR ---
32/M c/o left flank pain x3 days. Pt also reports "I think I passed out. I woke up on the ground. I may have had a seizure but I haven't had a seizure since I was 4." Pt also reports foul odor, "stuff floating in the tube." Pt noted with a nephrostomy tube to left flank. Pt denies fever or chills. Denies N/V/D. AOX4, ambulatory with steady gait. VSS. Cloudy urine noted in nephrostomy bag.
--- NOTE | 2017-05-04 15:55 | NUR ---
Patient being evaluated by physician at bedside.
[2017-05-04] MEDS ORDERED: oxyCODONE/APAP 5/325 MG 1 TAB TAB PO ONE (16:15)
--- NOTE | 2017-05-04 16:21 | NUR ---
Pt placed in position of comfort. Pt right side lying, pillow provided. All needs addressed at this time.
[2017-05-04 16:27] LABS: BASOPHILS # (AUTO) 0.2 K/uL (0.00-0.22); BASOPHILS % (AUTO) 4.4 % (0.0-2.0); EOSINOPHILS # (AUTO) 0.3 K/uL (0-0.4); EOSINOPHILS % (AUTO) 6.8 % (0.0-4.0); HEMATOCRIT 42.2 % (36-52); HEMOGLOBIN 14.2 g/dL (12.0-18.0); LYMPHOCYTES # (AUTO) 1.3 K/uL (2.0-11.5); LYMPHOCYTES % (AUTO) 30.1 % (20.5-51.1); MEAN CORPUSCULAR HEMOGLOBIN 29 pg (27-31); MEAN CORPUSCULAR HGB CONC 34 g/dL (33-37); MEAN CORPUSCULAR VOLUME 86 fL (80-94); MONOCYTES # (AUTO) 0.3 K/uL (0.8-1.0); MONOCYTES % (AUTO) 6.8 % (1.7-9.3); NEUTROPHILS # (AUTO) 2.2 K/uL (1.8-7.7); NEUTROPHILS % (AUTO) 51.9 % (42.2-75.2); PLATELET COUNT (AUTO) 185 K/uL (140-450); RED BLOOD CELL COUNT(AUTO) 4.92 MIL/uL (4.20-6.10); RED CELL DISTRIBUTION WIDTH 12.8 % (11.6-13.7); WHITE BLOOD COUNT (AUTO) 4.3 K/uL (4.8-10.8)
[2017-05-04 16:32] LABS: APPEARANCE,URINE CLOUDY (CLEAR); COLOR,URINE YELLOW (YELLOW)
[2017-05-04 16:33] LABS: LEUKOCYTE ESTERASE ,URINE 3+ (NEGATIVE); NITRITE, URINE NEGATIVE (NEGATIVE); PROTEIN,URINE 3+ (NEGATIVE); UROBILINOGEN,URINE 0.2 EU/dL (0.2 - 1)
[2017-05-04 16:34] LABS: BILIRUBIN,URINE NEGATIVE (NEGATIVE); BLOOD, URINE 3+ (NEGATIVE); PH,URINE 7.5 (5.0-9.0); UGLUCOSE NEGATIVE (NEGATIVE)
[2017-05-04 16:36] LABS: BACTERIA,URINE 4+ /HPF (None Seen); RBC,URINE TOO NUMEROUS TO COUN /HPF (0-5); WBC,URINE TOO MANY TO COUNT /HPF (0-5)
[2017-05-04 16:37] LABS: ALBUMIN 4.2 g/dL (3.4-5.0); ANION GAP 9.5 (8-16); CALCIUM 8.5 mg/dL (8.5-10.1); CARBON DIOXIDE 30.3 mmol/L (21-32); CREATININE 0.9 mg/dL (0.7-1.3); POTASSIUM 3.8 mmol/L (3.5-5.1); TOTAL BILIRUBIN 1.3 mg/dL (0.0-1.0); TOTAL PROTEIN, SERUM 7.1 g/dL (6.4-8.2)
--- NOTE | 2017-05-04 17:13 | NUR ---
Patient appears to be resting comfortably in bed. VSS.
--- NOTE | 2017-05-04 17:39 | NUR ---
IV removed, catheter intact and site benign. Applied folded 4x4 gauze and tape to stop bleeding.
--- NOTE | 2017-05-04 17:43 | NUR ---
Patient discharged with v/s stable. Written and verbal after care instructions given and explained. Patient alert, oriented and verbalized understanding of instructions. Ambulatory with steady gait. All questions addressed prior to discharge. ID band removed. Patient advised to follow up with PMD. Rx of CIPRO 500MG BID given. Patient educated on indication of medication including possible reaction and side effects. Opportunity to ask questions provided and answered.
[2017-05-04 17:44] VITALS: BP 118/55
--- NOTE | 2017-05-04 17:45 | NUR ---
Chart checked and completed. The patient's care was reviewed and supervised by Cisco Hammer RN.
== END 2017-05-04 17:43 | disposition home or self-care (01) ==
LOC: MED 14:31
DX: N39.0 Urinary tract infection, site not specified (principal); N12 Tubulo-interstitial nephritis, not specified as acute or chronic; Z93.6 Other artificial openings of urinary tract status
CPT/HCPCS: 36415; 80053; 81001; 83605; 85025; 87040; 87086; 99284

== ENCOUNTER 2017-11-21 01:15 | Emergency (ER) | payer OTHER ==
[~2017-11-21] VITALS: Ht 182.9 cm; Wt 70.0 kg
[2017-11-21 01:42] VITALS: BP 118/77
[2017-11-21 02:19] VITALS: BP 118/77
== END 2017-11-21 02:15 | disposition home or self-care (01) ==
LOC: MED 01:15
DX: S61.216A Laceration without foreign body of right little finger without damage to nail, initial encounter (principal); Z88.6 Allergy status to analgesic agent; W45.8XXA Other foreign body or object entering through skin, initial encounter; Y93.89 Activity, other specified; Y92.89 Other specified places as the place of occurrence of the external cause; Y99.8 Other external cause status
CPT/HCPCS: 90471; 90715; 99283

== ENCOUNTER 2018-03-17 21:15 | Emergency (ER) | payer OTHER ==
[~2018-03-17] VITALS: Ht 182.9 cm; Wt 73.9 kg
[2018-03-17 21:28] VITALS: BP 122/63
[2018-03-17] MEDS ORDERED: PHENAZOPYRIDINE 100 MG TAB PO ONE (22:50)
[2018-03-17] MEDS ORDERED: cefTRIAXone 250 MG in LIDOCAINE MPF 1% - **ER/OR** 0.9 ML IM ONE (22:50)
[2018-03-17] MEDS ORDERED: AZITHROMYCIN 250 MG TAB PO ONE (22:50)
[2018-03-17 23:34] VITALS: BP 120/60
[2018-03-20 06:17] LABS: CHLAMYDIA TRACHOMATIS AMP DNA Negative (Negative)
== END 2018-03-17 23:34 | disposition home or self-care (01) ==
LOC: MED 21:15
DX: A54.9 Gonococcal infection, unspecified (principal); A63.8 Other specified predominantly sexually transmitted diseases; R30.0 Dysuria; F12.10 Cannabis abuse, uncomplicated; Z98.890 Other specified postprocedural states
CPT/HCPCS: 36415; 81002; 96372; 99283; J0696; J2001; 87491

== ENCOUNTER 2018-12-07 14:26 | Emergency (ER) | payer OTHER ==
[~2018-12-07] VITALS: Ht 182.9 cm; Wt 74.4 kg
[2018-12-07 14:41] VITALS: BP 119/74
--- NOTE | 2018-12-07 15:52 | NUR ---
PT AMBULATED TO ER BED 08
--- NOTE | 2018-12-07 15:57 | NUR ---
BIB SELF W C/O PENILE YELLOW DISCHARGE AND BURNING WITH URINATION AND CONSTANT PAIN ON TIP OF PENIS 10 AFTER SEXUAL INTERCOURSE WITH EX GIRLFRIEND LAST FRIDAY. PT STATED" I THINK I HAVE STD".HX: NONE. PATIENT STATES PAIN OF 8/10 AT THIS TIME.PATIENT POSITIONED FOR COMFORT; HOB ELEVATED; BEDRAILS UP X2; BED DOWN. ER MD MADE AWARE OF PT STATUS.
[2018-12-07] MEDS ORDERED: cefTRIAXone 250 MG in LIDOCAINE MPF 1% - 5 mL VIAL 0.9 ML IM ONE (17:00)
[2018-12-07] MEDS ORDERED: KETOROLAC 30 MG/ML VIAL IM ONE (17:00)
[2018-12-07] MEDS ORDERED: AZITHROMYCIN 250 MG TAB PO ONE (17:00)
[2018-12-07 17:34] VITALS: BP 119/70
--- NOTE | 2018-12-07 17:47 | NUR ---
Patient discharged with v/s stable. Written and verbal after care instructions given and explained. Patient alert, oriented and verbalized understanding of instructions. Ambulatory with steady gait. All questions addressed prior to discharge. ID band removed. Patient advised to follow up with PMD. Rx of tramadol, levaquin, ibu given. Patient educated on indication of medication including possible reaction and side effects. Opportunity to ask questions provided and answered.
[2018-12-09 12:08] LABS: CHLAMYDIA TRACHOMATIS AMP DNA Positive (Negative)
--- NOTE | 2018-12-09 12:29 | NUR ---
POSITIVE CHLAMYDIA AND GONORRHOEAE REPORTED BY LAB--- REVIEWED TREATMENT, PT HAD RECEIVED 250MG ROCEPHIN IM AND AZITHROMYCIN 1GM PO REFERRED TO [facility] [place]. PT ALSO HAS UPCOMING PMD APPT ALREADY SCHEDULED. APPROPRIATE TREATMENT GIVEN
== END 2018-12-07 17:47 | disposition home or self-care (01) ==
LOC: MED 14:26
DX: N39.0 Urinary tract infection, site not specified (principal); Z11.3 Encounter for screening for infections with a predominantly sexual mode of transmission
CPT/HCPCS: 81002; 87491; 96372; 99283; J0696; J1885; J2001; 36415

== ENCOUNTER 2019-01-26 13:30 | Emergency (ER) | payer OTHER ==
[~2019-01-26] VITALS: Ht 182.9 cm; Wt 76.8 kg
[2019-01-26 13:34] VITALS: BP 124/81
--- NOTE | 2019-01-26 15:03 | NUR ---
PT EVALUATED BY ALECIA DAVILA
[2019-01-26] MEDS ORDERED: KETOROLAC 60 MG/2 ML VIAL IM ONE (15:05)
[2019-01-26 15:38] VITALS: BP 125/72
--- NOTE | 2019-01-26 15:38 | NUR ---
Patient discharged with v/s stable. Written and verbal after care instructions given and explained. Patient alert, oriented and verbalized understanding of instructions. Ambulatory with steady gait. All questions addressed prior to discharge. ID band removed. Patient advised to follow up with PMD. Rx of MOTRIN AND TRAMADOL given. Patient educated on indication of medication including possible reaction and side effects. Opportunity to ask questions provided and answered.
== END 2019-01-26 15:38 | disposition home or self-care (01) ==
LOC: MED 13:30
DX: S56.115A Strain of flexor muscle, fascia and tendon of right ring finger at forearm level, initial encounter (principal); X58.XXXA Exposure to other specified factors, initial encounter; Y93.89 Activity, other specified; Y92.89 Other specified places as the place of occurrence of the external cause; Y99.8 Other external cause status
CPT/HCPCS: 29130; 73140; 96372; 99283; J1885; Q0092

== ENCOUNTER 2019-03-18 06:00 | Emergency (ER) | payer OTHER ==
[~2019-03-18] VITALS: Ht 182.9 cm; Wt 77.1 kg
[2019-03-18 06:01] VITALS: BP 122/69
--- NOTE | 2019-03-18 06:01 | NUR ---
TO BED # 08 AMBULATORY
--- NOTE | 2019-03-18 06:09 | NUR ---
DR HARVEY AT BEDSIDE
--- NOTE | 2019-03-18 06:09 | NUR ---
34/M PRESENTS SELF TO ED, C/O INTERMITTENT EPISODES OF N/V FOR 3 DAYS, WORSENED YESTERDAY AT WORK AND TODAY UPON WAKING. 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 PT REPORTS PAIN ONLY WHEN VOMITING. DENIES FEVER, CONSTIPATION, DIARRHEA OR DYSURIA. AOX4, SKIN NORMAL WARM DRY, RR EVEN AND UNLABORED. LUNG SOUNDS CLEAR BL. HR EVEN AND REGULAR. BS ACTIVE X4, ABD SOFT ROUND NONTENDER. HX NEPHROSTOMY TUBE REMOVED (2018) DENIES RX
[2019-03-18] MEDS ORDERED: ONDANSETRON 4 MG/2 ML VIAL IVP ONE (06:25)
[2019-03-18] MEDS ORDERED: NACL 0.9% 1,000 ML IV ONE (06:25)
[2019-03-18 06:38] LABS: BASOPHILS % (AUTO) 0.5 % (0.0-2.0); EOSINOPHILS # (AUTO) 0.3 K/uL (0-0.4); EOSINOPHILS % (AUTO) 7.1 % (0.0-4.0); HEMATOCRIT 40.8 % (36-52); HEMOGLOBIN 13.9 g/dL (12.0-18.0); LYMPHOCYTES # (AUTO) 1.6 K/uL (2.0-11.5); LYMPHOCYTES % (AUTO) 37.7 % (20.5-51.1); MEAN CORPUSCULAR HEMOGLOBIN 30 pg (27-31); MEAN CORPUSCULAR HGB CONC 34 g/dL (33-37); MEAN CORPUSCULAR VOLUME 86.9 fL (80-94); MONOCYTES # (AUTO) 0.3 K/uL (0.8-1.0); MONOCYTES % (AUTO) 7.3 % (1.7-9.3); NEUTROPHILS % (AUTO) 47.4 % (42.2-75.2); PLATELET COUNT (AUTO) 153 K/uL (140-450); RED CELL DISTRIBUTION WIDTH 13.7 % (11.6-13.7); WHITE BLOOD COUNT (AUTO) 4.2 K/uL (4.8-10.8)
--- NOTE | 2019-03-18 07:10 | NUR ---
REPORT RECEIVED FROM CRISTELA LITTLE Addendum: 03/18/19 at 0741 by GERRY REPORT RECEIVED FROM CRISTELA FRY
--- NOTE | 2019-03-18 07:41 | NUR ---
LAB AT BEDSIDE
--- NOTE | 2019-03-18 08:00 | NUR ---
PT RESTING COMFORTABLY AT THIS TIME.
[2019-03-18 08:13] LABS: ALBUMIN 4.2 g/dL (3.4-5.0); ANION GAP 14.5 (8-16); CARBON DIOXIDE 24.1 mmol/L (21-32); CREATININE 0.9 mg/dL (0.7-1.3); POTASSIUM 3.6 mmol/L (3.5-5.1); TOTAL BILIRUBIN 1.1 mg/dL (0.0-1.0)
[2019-03-18 08:50] VITALS: BP 110/74
== END 2019-03-18 08:51 | disposition home or self-care (01) ==
LOC: MED 06:00
DX: R11.2 Nausea with vomiting, unspecified (principal); R10.9 Unspecified abdominal pain
CPT/HCPCS: 36415; 80053; 83690; 85025; 96361; 96374; 99283; J2405; J7030

== ENCOUNTER 2020-03-21 17:14 | Emergency (ER) | payer OTHER ==
[~2020-03-21] VITALS: Ht 180.3 cm; Wt 80.5 kg
[2020-03-21 17:45] VITALS: BP 112/59
--- NOTE | 2020-03-21 18:00 | NUR ---
Dr. Gandara is evaluating the patient at bedside.
--- NOTE | 2020-03-21 18:04 | NUR ---
C/O PAIN 05/15 TO R GROIN AREA X 5DAYS. PT STATES HE LIFTS HEAVY ITEMS AT WORK FREQUENTLY AND FEELS HE PULLED SOMETHING IN HIS GROIN. PT ALSO REPORTS HE HAS HX OF R INGUINAL HERNIA. NO LUMP NOTED TO GROIN, PT STATES IT IS MORE PAINFUL WHEN HE ATTEMPTS TO SIT UP. BED IN LOW POSITION, SIDE RAIL UP X1
[2020-03-21 18:23] VITALS: BP 112/59
== END 2020-03-21 18:24 | disposition home or self-care (01) ==
LOC: MED 17:14
DX: R10.31 Right lower quadrant pain (principal); F12.90 Cannabis use, unspecified, uncomplicated; N28.9 Disorder of kidney and ureter, unspecified; R56.9 Unspecified convulsions; Z95.0 Presence of cardiac pacemaker; Z87.448 Personal history of other diseases of urinary system
CPT/HCPCS: 99282

== ENCOUNTER 2020-07-17 14:28 | Emergency (ER) | payer OTHER ==
[~2020-07-17] VITALS: Ht 182.9 cm; Wt 81.6 kg
[2020-07-17 14:38] VITALS: BP 88/71
--- NOTE | 2020-07-17 14:42 | NUR ---
PATIENT AMBULATED TO BED 9.
--- NOTE | 2020-07-17 14:45 | NUR ---
35 Y/O M C/C NVD X 3 DAYS. PER PT 4-5 EPISODES OF DIARREAH PER DAY; VOMITTING >2 EPISODES. POOR APPETITE. PT DENIES HEMATOCHEZIA,MELENA,HEMATEMESIS. PER PT HAS BEEN EXPOSED TO POSITIVE COVID CASES AT WORK; PT DENIES BEING POSITIVE COVID TESTED 3 WEEKS AGO. NKA. NO HX. SX LEFT KIDNEY DUE TO ENLARGEMENT 3 YEARS AGO. NO RX. SIDE RAIL X1.
[2020-07-17] MEDS ORDERED: ONDANSETRON 4 MG/2 ML VIAL IVP ONE (15:20)
[2020-07-17] MEDS ORDERED: NACL 0.9% 1,000 ML IV ONE ×2 (15:20→17:20)
--- NOTE | 2020-07-17 15:41 | NUR ---
BLOOD OBTAINED - RAINBOW CAPS - GIVEN TO LAB
--- NOTE | 2020-07-17 15:41 | NUR ---
LISANDRA SWAB OBTAINED - GIVEN TO LAB
[2020-07-17 15:47] LABS: BASOPHILS % (AUTO) 0.4 % (0.0-2.0); HEMATOCRIT 42.2 % (36-52); HEMOGLOBIN 14.7 g/dL (12.0-18.0); LYMPHOCYTES # (AUTO) 0.7 K/uL (2.0-11.5); LYMPHOCYTES % (AUTO) 9.4 % (20.5-51.1); MEAN CORPUSCULAR HEMOGLOBIN 29 pg (27-31); MEAN CORPUSCULAR HGB CONC 35 g/dL (33-37); MEAN CORPUSCULAR VOLUME 83.5 fL (80-94); MONOCYTES # (AUTO) 0.5 K/uL (0.8-1.0); MONOCYTES % (AUTO) 5.9 % (1.7-9.3); NEUTROPHILS # (AUTO) 6.7 K/uL (1.8-7.7); NEUTROPHILS % (AUTO) 84.3 % (42.2-75.2); PLATELET COUNT (AUTO) 154 K/uL (140-450); RED BLOOD CELL COUNT(AUTO) 5.05 MIL/uL (4.20-6.10); RED CELL DISTRIBUTION WIDTH 13.2 % (11.6-13.7); WHITE BLOOD COUNT (AUTO) 7.9 K/uL (4.8-10.8)
[2020-07-17 16:01] LABS: ALBUMIN 3.8 g/dL (3.4-5.0); ANION GAP 13.1 (8-16); CARBON DIOXIDE 26.7 mmol/L (21-32); CREATININE 1.2 mg/dL (0.6-1.3); POTASSIUM 3.8 mmol/L (3.5-5.1); TOTAL BILIRUBIN 1.3 mg/dL (0.0-1.0)
--- NOTE | 2020-07-17 16:07 | NUR ---
REPORT GIVEN TO DEANA ARCHIBALD FOR CONTINUITY OF CARE
--- NOTE | 2020-07-17 17:29 | NUR ---
ICE WATER PROVIDED. CALL LIGHT LEFT WITHIN REACH. VSS. IV FLUIDS INITIATED, PT TOLERATED WELL.
--- NOTE | 2020-07-17 17:58 | NUR ---
UA COLLECTED AND SENT TO LAB. IV FLUIDS DISCONTINUED. WARM BLANKETS PROVIDED. PT RESTING COMFORTABLY IN BED. DR. BARNARD UPDATED ABOUT PATIENT CONDITION. VSS.
[2020-07-17 18:05] LABS: APPEARANCE,URINE HAZY (CLEAR); BILIRUBIN,URINE NEGATIVE (NEGATIVE); BLOOD, URINE TRACE-I (NEGATIVE); COLOR,URINE YELLOW (YELLOW); LEUKOCYTE ESTERASE ,URINE NEGATIVE (NEGATIVE); NITRITE, URINE NEGATIVE (NEGATIVE); PH,URINE 5.5 (5.0-9.0); UGLUCOSE NEGATIVE (NEGATIVE)
--- NOTE | 2020-07-17 18:30 | NUR ---
IV removed, catheter intact and site benign. Applied folded 4x4 gauze and tape to stop bleeding. Patient tolerated well.
[2020-07-17 18:33] VITALS: BP 100/48
--- NOTE | 2020-07-17 18:33 | NUR ---
Patient discharged with v/s stable. Written and verbal after care instructions given and explained. Patient alert, oriented and verbalized understanding of instructions. Ambulatory with steady gait. All questions addressed prior to discharge. ID band removed. Patient advised to follow up with PMD. Rx of Zofran ODT 4mg given. Work excuse provided for the next two days. Results of COVID test also provided to patient for proof for work. Patient educated on indication of medication including possible reaction and side effects. Opportunity to ask questions provided and answered.
== END 2020-07-17 18:33 | disposition home or self-care (01) ==
LOC: MED 14:28
DX: E86.0 Dehydration (principal); R19.7 Diarrhea, unspecified; R11.2 Nausea with vomiting, unspecified; Z95.0 Presence of cardiac pacemaker; Z87.448 Personal history of other diseases of urinary system
CPT/HCPCS: 36415; 80053; 81003; 83690; 85025; 87426; 96361; 96374; 99283; J2405; J7030